=== PATIENT | female | born 1985 | race Caucasian/White ===

== ENCOUNTER 2017-05-15 21:39 | Emergency (ER) | payer OTHER ==
[~2017-05-15] VITALS: Ht 165.1 cm; Wt 56.5 kg
[~2017-05-15 21:39] MED LIST: PRENAT PO
[2017-05-15 21:42] VITALS: Ht 165.1 cm; Wt 56.5 kg
[2017-05-15 22:58] LABS: BASOPHILS % 0.4 % (0.0-2.0); EOSINOPHILS # 0.4 10^3/ul (0.0-0.5); EOSINOPHILS % 4.3 % (0.0-7.0); HEMATOCRIT 35.3 % (37.0-47.0); HEMOGLOBIN 11.4 g/dl (12.0-16.0); LYMPHOCYTES # 2.5 10^3/ul (0.8-2.9); LYMPHOCYTES % 26.7 % (15.0-51.0); MEAN CORPUSCULAR HGB CONC 32.3 g/dl (32.0-37.0); MEAN CORPUSCULAR VOLUME 83.6 fl (82.0-101.0); MEAN PLATELET VOLUME 10.7 fl (7.4-10.4); MONOCYTE # 0.5 10^3/ul (0.3-0.9); MONOCYTES % 4.9 % (0.0-11.0); NEUTROPHILS % 63.4 % (39.0-77.0); PLATELET COUNT 244 10^3/UL (140-415); RED BLOOD COUNT 4.22 10^6/ul (4.20-5.40); RED CELL DISTRIBUTION WIDTH 12.5 % (11.5-14.5); WHITE BLOOD COUNT 9.4 10^3/ul (4.8-10.8)
[2017-05-15 23:04] LABS: ADD UMIC NO; UR ASCORBIC ACID 40 mg/dL (NEGATIVE); UR BILIRUBIN (Dip) NEGATIVE (NEGATIVE); UR BLOOD (Dip) NEGATIVE (NEGATIVE); UR CLARITY CLEAR (CLEAR); UR COLOR YELLOW (YELLOW); UR GLUCOSE (Dip) NEGATIVE (NEGATIVE); UR KETONES (Dip) TRACE mg/dL (NEGATIVE); UR LEUKOCYTE ESTERASE (Dip) NEGATIVE Leu/ul (NEGATIVE); UR NITRITE (Dip) NEGATIVE (NEGATIVE); UR SPECIFIC GRAVITY (Dip) 1.012 (1.003-1.030); UR TOTAL PROTEIN (Dip) NEGATIVE (NEGATIVE); UR UROBILINOGEN (Dip) NEGATIVE (NEGATIVE)
--- NOTE | 2017-05-15 23:19 | RADRPT ---
PROCEDURE: US OB. CLINICAL INDICATION: Vaginal bleeding. Positive TECHNIQUE: Transabdominal and transvaginal views of the pelvis are available for review. COMPARISON: No relevant prior studies are available for comparison. FINDINGS: Uterus: No evidence of masses and normal in size estimated at 7.7 x 5 x 4.4 cm. Endometrial cavity: Intrauterine gestational sac, yolk sac and pole are present with the foll owing information: [place]-rump length:0.21 cm heart rate:101 bpm Gestational sac:1.52 cm Ultrasound estimated gestational age:6 weeks No evidence of subchorionic hemorrhage Right ovary/adnexa: Ovarian size is normal estimated at 3.3 x 2.6 x 2.1 cm. Simple anechoic cyst m easures 2.1 x 1.7 x 1.5 cm likely a corpus luteum. No adnexal mass lesion is seen. Normal blood flow within the ovarian tissue is present. Left ovary/adnexa: Ovarian size normal estimated at 1.5 x 1.5 x 1.3 cm. No ovarian or adnexal mass lesion is seen. Cul-de-sac: There is no free fluid. RPTAT:HJJR IMPRESSION: 1. Single live intrauterine with an estimated gestational age of 6 weeks, the estimated d ate of delivery 01/08/2018. 2. No evidence of subchorionic hemorrhage. 3. Likely 2.1 cm right corpus luteum cyst. Physician Nhung Date Time Electronically viewed and signed by Physician Nhung on 05/15/2017 23:19 /
--- NOTE | 2017-05-16 01:02 | ERD ---
ER Documentation Chief Complaint Date/Time DATE: 05/16/17 TIME: 00:54 Chief Complaint PT reports pelvic pressure and low back pain with brown spotting 5 wks preg HPI Patient is a 31-year-old female approximately 5 weeks , who presents to the emergency department for concerns of pelvic pain and lower back pain with vaginal spotting2 days. Patient is A1. Patient reports cramping in bilateral lower pelvic regions. Patient describes a cramping to be intermittent. Patient states she has used 1 pad thus far. Patient denies any bright red bleeding. Patient reports brown blood spotting. Patient denies any fevers, chills, nausea, vomiting, chest pain, shortness breath, abdominal pain or LOC. Patient does have an appointment with her [employer] on 05/20/17. She states her last menstrual period was on 04-04-2017. ROS All systems reviewed and are negative except as per history of present illness. Medications Home Meds Reported Medications Multivit/Min/Fol Ac/Iron/Pren* ( S*) 1 Tab Tab, 1 TAB PO DAILY, TAB 04/14/16 Allergies Allergies: Coded Allergies: nitrofurantoin (Verified Allergy, Intermediate, Hives, 08/02/16) PMhx/Soc Medical and Surgical Hx: pt denies Medical Hx, pt denies Surgical Hx History of Surgery: Yes (D&C) Anesthesia Reaction: No Hx Neurological Disorder: No Hx Respiratory Disorders: No Hx Cardiac Disorders: No Hx Psychiatric Problems: No Hx Miscellaneous Medical Probl: Yes ( 3, PARA 1, ABD 1 ) Hx Alcohol Use: No Hx Substance Use: No Hx Tobacco Use: No Smoking Status: Never smoker Physical Exam Vitals Vital Signs Date Time Temp Pulse Resp B/P Pulse Ox O2 Delivery O2 Flow Rate FiO2 05/15/17 21:42 98.8 81 16 124/82 100 Physical Exam GENERAL: Well-developed, well-nourished female. Appears in no acute distress. HEAD: Normocephalic, atraumatic. EYES: Pupils are equally reactive bilaterally. EOMs grossly intact. No conjunctival erythema. ENT: Moist mucous membranes. No uvula deviation. No kissing tonsils. NECK: Supple. No meningismus. Normal range of motion of the neck. LUNG: Clear to auscultation bilaterally. No rhonchi, wheezing, rales or coarse breath sounds. HEART: Regular rate and rhythm. No murmurs, rubs or gallops. ABDOMEN:. Soft, and nondistended. Tender to palpation in the suprapubic region. Positive bowel sounds in all four quadrants. No rebound tenderness, no guarding. (-) McBurney's point tenderness. No CVA tenderness. BACK: No midline tenderness. EXTREMITIES: Equal pulses bilaterally. No peripheral clubbing, cyanosis or edema. No unilateral leg swelling. NEUROLOGIC: Alert and oriented. Moving all four extremities without any difficulty. Normal speech. Steady gait. SKIN: Normal color. Warm and dry. No rashes or lesions. Result Diagram: 05/15/172233 Results 24 hrs Laboratory Tests Test 05/15/17 22:00 05/15/17 22:34 Urine Color YELLOW Urine Clarity CLEAR Urine pH 5.0 Urine Specific [place] 1.012 Urine Ketones TRACEmg/dL Urine Nitrite NEGATIVEmg/dL Urine Bilirubin NEGATIVEmg/dL Urine Urobilinogen NEGATIVEmg/dL Urine Leukocyte Esterase NEGATIVELeu/ul Urine Hemoglobin NEGATIVEmg/dL Urine Glucose NEGATIVEmg/dL Urine Total Protein NEGATIVEmg/dl White Blood Count 9.410^3/ul Red Blood Count 4.2210^6/ul Hemoglobin 11.4g/dl Hematocrit 35.3% Mean Corpuscular Volume 83.6fl Mean Corpuscular Hemoglobin 27.0pg Mean Corpuscular Hemoglobin Concent 32.3g/dl Red Cell Distribution Width 12.5% Platelet Count 55749^3/UL Mean Platelet Volume 10.7fl Neutrophils % 63.4% Lymphocytes % 26.7% Monocytes % 4.9% Eosinophils % 4.3% Basophils % 0.4% Nucleated Red Blood Cells % 0.0/100WBC Neutrophils # 6.010^3/ul Lymphocytes # 2.510^3/ul Monocytes # 0.510^3/ul Eosinophils # 0.410^3/ul Basophils # 0.010^3/ul Nucleated Red Blood Cells # 0.010^3/ul Beta HCG, Quantitative 39754.0mIU/ml Procedures/MDM ED COURSE: The patient was stable throughout ED course. I kept the patient and/or family informed of laboratory and diagnostic imaging results throughout the ED course. DIAGNOSTIC IMAGING: Read by radiologist. DIAGNOSTIC IMAGING REPORT Patient: AMEENA QUIROZ : 1985 Age: 31 Sex: F MR #: [id number] DOS: 05/15/17 2224 Ordering MD: SELINA SEYMOUR PA-C Location: [facility] Room/Bed: PROCEDURE: US OB. CLINICAL INDICATION: Vaginal bleeding. Positive TECHNIQUE: Transabdominal and transvaginal views of the pelvis are available for review. COMPARISON: No relevant prior studies are available for comparison. FINDINGS: Uterus: No evidence of masses and normal in size estimated at 7.7 x 5 x 4.4 cm. Endometrial cavity: Intrauterine gestational sac, yolk sac and pole are present with the following information: [place]-rump length: 0.21 cm heart rate: 101 bpm Gestational sac: 1.52 cm Ultrasound estimated gestational age: 6 weeks No evidence of subchorionic hemorrhage Right ovary/adnexa: Ovarian size is normal estimated at 3.3 x 2.6 x 2.1 cm. Simple anechoic cyst measures 2.1 x 1.7 x 1.5 cm likely a corpus luteum. No adnexal mass lesion is seen. Normal blood flow within the ovarian tissue is present. Left ovary/adnexa: Ovarian size normal estimated at 1.5 x 1.5 x 1.3 cm. No ovarian or adnexal mass lesion is seen. Cul-de-sac: There is no free fluid. RPTAT:HJJR IMPRESSION: 1. Single live intrauterine with an estimated gestational age of 6 weeks, the estimated date of delivery 01/08/2018. 2. No evidence of subchorionic hemorrhage. 3. Likely 2.1 cm right corpus luteum cyst. Physician Nhung Date Time Electronically viewed and signed by Physician Nhung on 05/15/2017 23:19 JR/ CC: SELINA SEYMOUR PA-C Medical Decision Making: This is a 31-year-old female, G3, P1, A1,, who presents the emergency department for pelvic cramping and vaginal spotting. Vital signs were reviewed. Patient is afebrile. Patient is hemodynamically stable. Urine test was positive. [place] [address]. Patient was A+. No RhoGam was given. Patient's hemoglobin level was noted to be 11.4, hematocrit of 35.3. Patient was advised to continue to take vitamins. Pelvic US showed 1. Single live intrauterine with an estimated gestational age of 6 weeks, the estimated date of delivery 01/08/2018. 2. No evidence of subchorionic hemorrhage. 3. Likely 2.1 cm right corpus luteum cyst. Given these findings, the patient's presentation is most consistent with threatened and cyst. Unable to rule out spontaneous at this time. I have a much lower clinical concern for ectopic , ruptured ectopic , molar , subchorionic hematoma, incomplete , placental abruption, placental previa, vasa previa, uterine rupture, anembyronic . She was advised to follow-up with her [employer] or return here in in 2 days for repeat beta-hCG. Discharge: At this time, patient is stable for discharge and outpatient management. I had a conversation at length with the patient about the concerns of vaginal bleeding during the 1st trimester of . Patient and/or family understands that her vaginal bleeding can be a normal finding or a sign of miscarriage. I have instructed the patient to follow-up with her OBGYN in 1-2 days for further monitoring. I have instructed the patient to promptly return to the ER at any time for any new or worsening symptoms including increased pain , nausea, vomiting, continued bleeding, weakness, syncope or fever. The patient and/or family expressed understanding of and agreement with this plan. All questions were answered. Home care instructions were provided. Disclaimer: Inadvertent spelling and grammatical errors are likely due to EHR/ dictation software use and do not reflect on the overall quality of patient care. Also, please note that the electronic time recorded on this note does not necessarily reflect the actual time of the patient encounter. Departure Diagnosis: Primary Impression: Vaginal bleeding in patient at less than 20 weeks ges... Condition: Stable Patient Instructions: Bleeding During Early Referrals: LASHON BAL (PCP) Additional Instructions: Return in 2 days for repeat beta-hCG her follow-up with her [employer]. Call your primary care doctor TOMORROW for an appointment during the next 1-2 days.See the doctor sooner or return here if your condition worsens before your appointment time. SELINA SEYMOUR PA-C May 16, 2017 01:02
== END 2017-05-16 00:54 | disposition home or self-care (01) ==
LOC: FTE 21:39
DX: O20.9 Hemorrhage in early pregnancy, unspecified (principal); R10.2 Pelvic and perineal pain; Z3A.01 Less than 8 weeks gestation of pregnancy
CPT/HCPCS: 36415; 76801; 76817; 81003; 84702; 85025; 86900; 86901; Z7502

== ENCOUNTER 2017-06-20 04:18 | Emergency (ER) | payer OTHER ==
[~2017-06-20] VITALS: Ht 162.6 cm; Wt 59.5 kg
[2017-06-20 04:23] VITALS: Ht 162.6 cm; Wt 59.5 kg
[2017-06-20] MEDS ORDERED: SOD CHLORIDE 0.9% 1,000 ML IV STA (07:09)
[2017-06-20] MEDS ORDERED: ONDANSETRON 4 MG INJ IV STA (07:09)
[2017-06-20 08:23] LABS: BASOPHILS % 0.2 % (0.0-2.0); EOSINOPHILS # 0.1 10^3/ul (0.0-0.5); EOSINOPHILS % 2.2 % (0.0-7.0); HEMATOCRIT 33.8 % (37.0-47.0); HEMOGLOBIN 11.5 g/dl (12.0-16.0); LYMPHOCYTES # 0.9 10^3/ul (0.8-2.9); LYMPHOCYTES % 14.6 % (15.0-51.0); MEAN CORPUSCULAR HEMOGLOBIN 28.6 pg (29.0-33.0); MEAN CORPUSCULAR VOLUME 84.1 fl (82.0-101.0); MEAN PLATELET VOLUME 10.1 fl (7.4-10.4); MONOCYTE # 0.4 10^3/ul (0.3-0.9); MONOCYTES % 5.9 % (0.0-11.0); NEUTROPHILS % 76.8 % (39.0-77.0); PLATELET COUNT 227 10^3/UL (140-415); RED BLOOD COUNT 4.02 10^6/ul (4.20-5.40); RED CELL DISTRIBUTION WIDTH 13.4 % (11.5-14.5); WHITE BLOOD COUNT 6.4 10^3/ul (4.8-10.8)
[2017-06-20 08:32] LABS: ADD UMIC YES; UR ASCORBIC ACID NEGATIVE (NEGATIVE); UR BACTERIA FEW /HPF (NONE SEEN); UR BILIRUBIN (Dip) NEGATIVE (NEGATIVE); UR BLOOD (Dip) 2+ mg/dL (NEGATIVE); UR CLARITY CLEAR (CLEAR); UR COLOR YELLOW (YELLOW); UR GLUCOSE (Dip) NEGATIVE (NEGATIVE); UR KETONES (Dip) NEGATIVE (NEGATIVE); UR LEUKOCYTE ESTERASE (Dip) NEGATIVE Leu/ul (NEGATIVE); UR MUCUS FEW /HPF (NONE SEEN); UR NITRITE (Dip) NEGATIVE (NEGATIVE); UR RBC 1 /HPF (0-5); UR SPECIFIC GRAVITY (Dip) 1.009 (1.003-1.030); UR TOTAL PROTEIN (Dip) NEGATIVE (NEGATIVE); UR UROBILINOGEN (Dip) NEGATIVE (NEGATIVE)
[2017-06-20 08:44] LABS: ALBUMIN 3.9 g/dl (3.3-4.9); ALBUMIN/GLOBULIN RATIO 1.25; BILIRUBIN,INDIRECT 0.1 mg/dl (0-1.1); BILIRUBIN,TOTAL 0.1 mg/dl (0.2-1.3); CALCIUM 8.8 mg/dl (8.4-10.2); CREATININE 0.48 mg/dl (0.44-1.00); POTASSIUM 3.8 mmol/L (3.5-5.1)
--- NOTE | 2017-06-20 08:57 | RADRPT ---
PROCEDURE: US Pelvis. CLINICAL INDICATION: Vaginal bleeding and . TECHNIQUE: Multiple real time [place]evedo-scale sonographic images of the pelvis with Doppler evaluation of the ovaries were obtained utilizing a transabdominal technique. COMPARISON: The ultrasound 05/15/2017 FINDINGS: The gravid uterus is unremarkable. There is a single live intrauterine with crown-rump edna gth measurements correspond to 11 weeks 3 days gestational age. No evidence of subchorionic hemorrha ge. heart rate 165 beats per minute. No adnexal masses. The ovaries are normal in appearance. No free fluid in the cul-de-sac. IMPRESSION: 1. Single live intrauterine 11 weeks 3 days gestational age. No evidence of subchorionic h emorrhage. 2. The heart rate of 165 beats per minute. 3. No evidence of adnexal mass or free fluid. RPTAT: HH Physician Stu Date Time Electronically viewed and signed by Physician Stu on 06/20/2017 08:56 [place]/
[2017-06-20] MEDS ORDERED: AMOX500C2 PO (09:11)
[2017-06-20] MEDS ORDERED: ONDA-43 PO (09:11)
--- NOTE | 2017-06-20 09:24 | ERD ---
ER Documentation Chief Complaint Chief Complaint 11 wks , pelvic pain, diarrhea w/ blood steaks HPI This is a 32-year-old female currently 11 weeks who that comes into the ER complaining of crampy lower abdominal pain with bloody diarrhea. She also complains of nausea and non-bilious nonbloody vomiting. Patient denies any vaginal bleeding or vaginal discharge. She denies any fevers or chills. She denies any urinary frequency or dysuria. Patient denies any recent travel. There are no sick contacts at home. A1. ROS 12 point review of systems was done, all negative except per HPI. Medications Home Meds Active Scripts Ondansetron Hcl* (Zofran*) 4 Mg Tab, 4 MG PO Q4H Y for NAUSEA AND OR VOMITING, # 15 TAB Prov:PRIMO STONE 06/20/17 Amoxicillin* (Amoxicillin*) 500 Mg Cap, 500 MG PO TID for 7 Days, CAP Prov:PRIMO STONE 06/20/17 Reported Medications Multivit/Min/Fol Ac/Iron/Pren* ( S*) 1 Tab Tab, 1 TAB PO DAILY, TAB 04/14/16 Allergies Allergies: Coded Allergies: nitrofurantoin (Verified Allergy, Intermediate, Hives, 08/02/16) PMhx/Soc History of Surgery: Yes (D&C) Anesthesia Reaction: No Hx Neurological Disorder: No Hx Respiratory Disorders: No Hx Cardiac Disorders: No Hx Psychiatric Problems: No Hx Miscellaneous Medical Probl: Yes ( 3, PARA 1, ABD 1 ) Hx Alcohol Use: No Hx Substance Use: No Hx Tobacco Use: No Smoking Status: Never smoker Physical Exam Vitals Vital Signs Date Time Temp Pulse Resp B/P Pulse Ox O2 Delivery O2 Flow Rate FiO2 06/20/17 04:23 97.8 87 20 113/58 100 Physical Exam GENERAL: The patient is well developed and appropriate for usual state of health , in no apparent distress. HEENT: Atraumatic. CHEST: Clear to auscultation bilaterally. There are no rales, wheezes or rhonchi. HEART: Regular rate and rhythm. No murmurs, clicks, rubs or gallops. ABDOMEN: Soft, nontender and nondistended. Good bowel sounds. No rebound or guarding. No gross peritonitis. No gross organomegaly or masses. No Becerril sign or McBurney point tenderness. BACK: No midline or flank tenderness. NEURO: Alert and oriented. SKIN: The skin is warm and dry. Result Diagram: 06/20/17 0810 06/20/17 0810 Results 24 hrs Laboratory Tests Test 06/20/17 07:45 06/20/17 08:10 Urine Color YELLOW Urine Clarity CLEAR Urine pH 6.0 Urine Specific [place] 1.009 Urine Ketones NEGATIVEmg/dL Urine Nitrite NEGATIVEmg/dL Urine Bilirubin NEGATIVEmg/dL Urine Urobilinogen NEGATIVEmg/dL Urine Leukocyte Esterase NEGATIVELeu/ul Urine Microscopic RBC 1/HPF Urine Microscopic WBC 1/HPF Urine Bacteria FEW/HPF Urine Mucus FEW/HPF Urine Hemoglobin 2+mg/dL Urine Glucose NEGATIVEmg/dL Urine Total Protein NEGATIVEmg/dl White Blood Count 6.410^3/ul Red Blood Count 4.0210^6/ul Hemoglobin 11.5g/dl Hematocrit 33.8% Mean Corpuscular Volume 84.1fl Mean Corpuscular Hemoglobin 28.6pg Mean Corpuscular Hemoglobin Concent 34.0g/dl Red Cell Distribution Width 13.4% Platelet Count 09355^3/UL Mean Platelet Volume 10.1fl Neutrophils % 76.8% Lymphocytes % 14.6% Monocytes % 5.9% Eosinophils % 2.2% Basophils % 0.2% Nucleated Red Blood Cells % 0.0/100WBC Neutrophils # 5.010^3/ul Lymphocytes # 0.910^3/ul Monocytes # 0.410^3/ul Eosinophils # 0.110^3/ul Basophils # 0.010^3/ul Nucleated Red Blood Cells # 0.010^3/ul Sodium Level 138mmol/L Potassium Level 3.8mmol/L Chloride Level 106mmol/L Carbon Dioxide Level 23mmol/L Anion Gap 13 Blood Urea Nitrogen 7mg/dl Creatinine 0.48mg/dl Glucose Level 76mg/dl Calcium Level 8.8mg/dl Total Bilirubin 0.1mg/dl Direct Bilirubin 0.00mg/dl Indirect Bilirubin 0.1mg/dl Aspartate Amino Transf (AST/SGOT) 20IU/L Alanine Aminotransferase (ALT/SGPT) 30IU/L Alkaline Phosphatase 47IU/L Total Protein 7.0g/dl Albumin 3.9g/dl Globulin 3.10g/dl Albumin/Globulin Ratio 1.25 Current Medications Medications (Trade) Dose Ordered Sig/Radha Route PRN Reason Start Time Stop Time Status Last Admin Dose Admin Sodium Chloride (NS) 1,000 ml @ 1,000 mls/hr Q1H STAT IV 06/20/17 07:09 06/20/17 08:08 DC 06/20/17 08:06 Ondansetron HCl (Zofran Inj) 4 mg ONCE STAT IV 06/20/17 07:09 06/20/17 07:10 DC 06/20/17 08:06 Procedures/MDM This is a 32-year-old female presents to the ER with diarrhea, nausea, vomiting. I discussed this case and lab findings + ultrasound findings with my supervising physician Dr. Mata. Patient will be sent home with amoxicillin for possible bacterial diarrhea. We did advise patient to wait through today to see if there is any improvement. Was not clinically dehydrated and felt significantly better after Zofran and fluids in the ER. She did not have any episodes of vomiting in the ER. Patient does not have any complaints regarding her , however ultrasound was done to check on baby and everything was normal. For threatened , miscarriage is low. Patient needs to follow- up with her primary care doctor within 1-2 days or return to ER sooner if symptoms worsen. My medical decision making shared with the patient she understands and agrees with plan. Departure Diagnosis: Primary Impression: Diarrhea Condition: Stable Patient Instructions: Self-Care for Vomiting and Diarrhea Additional Instructions: Call your primary care doctor TOMORROW for an appointment during the next 1-2 days.See the doctor sooner or return here if your condition worsens before your appointment time. PRIMO STONE Jun 20, 2017 09:24
== END 2017-06-20 09:25 | disposition home or self-care (01) ==
LOC: FTE 04:18
DX: O99.89 Other specified diseases and conditions complicating pregnancy, childbirth and the puerperium (principal); R19.7 Diarrhea, unspecified; R10.2 Pelvic and perineal pain; O21.9 Vomiting of pregnancy, unspecified
CPT/HCPCS: 36415; 76801; 80053; 81001; 84702; 85025; 86900; 86901; 96374; J2405; J7030; Z7502

== ENCOUNTER → 2017-10-10 22:42 | Outpatient (CLI) | END | disposition home or self-care (01) ==